=== PATIENT | male | born 1945 | race Caucasian/White ===

== ENCOUNTER 2016-11-24 09:47 | Inpatient (IN) | payer OTHER ==
[~2016-11-24] VITALS: Ht 177.8 cm; Wt 86.4 kg
[2016-11-24] MEDS ORDERED: LACTATED RINGERS 1,000 ML IV SCH (10:22)
[2016-11-24] MEDS ORDERED: CEFAZOLIN 1,000 MG ONE (10:30)
[2016-11-24] MEDS ORDERED: DEXAMETHASONE 4 MG/ML, 1ML ONE (10:30)
[2016-11-24] MEDS ORDERED: PROPOFOL 10 MG/ML, 20ML ONE (10:30)
[2016-11-24] MEDS ORDERED: SUCCINYLCHOLINE 20 MG/ML, 10ML ONE (10:30)
[2016-11-24] MEDS ORDERED: ONDANSETRON 2MG/ML, 2ML ONE (10:30)
[2016-11-24] MEDS ORDERED: METOCLOPRAMIDE 5 MG/ML, 2ML ONE (10:30)
[2016-11-24] MEDS ORDERED: PHENYLEPHRINE 10 MG/ML ONE (10:30)
[2016-11-24] MEDS ORDERED: ATOR10TA9 PO (10:32)
[2016-11-24] MEDS ORDERED: FLUT16SP INH (10:32)
[2016-11-24] MEDS ORDERED: BIOT5TAB PO (10:32)
[2016-11-24] MEDS ORDERED: FLUT1AER INH (10:32)
[2016-11-24] MEDS ORDERED: ASCO100072 PO (10:32)
[2016-11-24] MEDS ORDERED: ASPI-650 PO (10:32)
[2016-11-24 10:38] VITALS: BP 160/89
[2016-11-24 11:29] LABS: BLOOD UREA NITROGEN 13 mg/dL (7-18)
[2016-11-24 11:32] LABS: ASPARTATE AMINO TRANSFERASE 21 U/L (15-37)
[2016-11-24] MEDS ORDERED: OXYMETAZOLINE NASAL SPRAY 0.05%, 15ML ONE (13:11)
[2016-11-24] MEDS ORDERED: LIDOCAINE/PF 1%-EPI 1:200K, 30ML ONE (13:11)
[2016-11-24] MEDS ORDERED: BACITRACIN OINT 500U/GM, 15 GM ONE (13:12)
[2016-11-24] MEDS ORDERED: HYDROmorphone 1 MG/ML, 1ML ONE (13:19)
[2016-11-24] MEDS ORDERED: FENTANYL PF 250 MCG/5ML ONE (13:20)
[2016-11-24] MEDS ORDERED: hydrALAzine 20 MG/ML, 1ML IV PRN (14:30)
[2016-11-24] MEDS ORDERED: FENTANYL PF 100 MCG/2ML IV PRN (14:30)
[2016-11-24] MEDS ORDERED: ONDANSETRON 2MG/ML, 2ML IVPush PRN (14:30)
[2016-11-24] MEDS ORDERED: LABETALOL 5MG/ML, 20ML IV PRN (14:30)
[2016-11-24] MEDS ORDERED: HYDROmorphone 1 MG/ML, 1ML IV PRN (14:30)
[2016-11-24] MEDS ORDERED: OXYcodone 5 MG/5 ML ORAL.SOL UDC PO PRN (14:30)
[2016-11-24] MEDS ORDERED: DIPHENHYDRAMINE 50 MG/ML, 1ML IV PRN (22:00)
[2016-11-24] MEDS: LABETALOL 5MG/ML, 20ML IVPush SCH (22:00)
[2016-11-24] MEDS ORDERED: LORazepam 1MG TABLET PO PRN (22:00)
[2016-11-24] MEDS ORDERED: LORazepam 2 MG/ML, 1ML IV PRN (22:00)
[2016-11-24] MEDS ORDERED: ACETAMINOPHEN 650 MG SUPP PR PRN (22:00)
[2016-11-24] MEDS ORDERED: ACETAMINOPHEN 325 MG TABLET PO PRN (22:00)
[2016-11-24] MEDS ORDERED: morphine SULFATE 10 MG/ML, 1ML IV PRN (22:00)
[2016-11-24] MEDS ORDERED: ONDANSETRON 2MG/ML, 2ML IV PRN (22:00)
[2016-11-24] MEDS ORDERED: DIPHENHYDRAMINE 25 MG CAPSULE PO PRN (22:00)
[2016-11-24] MEDS ORDERED: ENALAPRILAT 1.25 MG/ML, 2ML IV PRN (22:00)
[2016-11-24] MEDS: POTASSIUM CHLORIDE 20 MEQ in D5%-0.45% NACL 1,000 ML IV SCH (22:59)
[2016-11-25 00:06] VITALS: BP 150/88
[2016-11-25 03:32] VITALS: BP 134/79
[2016-11-25] MEDS: LABETALOL 5MG/ML, 20ML IVPush SCH ×3 (05:45→22:00)
[2016-11-25 05:58] LABS: BLOOD UREA NITROGEN 10 mg/dL (7-18)
[2016-11-25 07:29] VITALS: BP 144/76
[2016-11-25] MEDS: POTASSIUM CHLORIDE 20 MEQ in D5%-0.45% NACL 1,000 ML IV SCH ×3 (09:00→23:07)
[2016-11-25] MEDS: SODIUM CHLORIDE FLUSH 10ML SYR IVF SCH ×2 (09:36→23:07)
[2016-11-25] MEDS: BACITRACIN OINT 500U/GM, 15 GM TP PRN (09:55)
[2016-11-25] MEDS: CALCIUM/VITAMIN D3 250-125 TABLET PO SCH ×3 (09:55→23:07)
[2016-11-25] MEDS ORDERED: CALCIUM/VITAMIN D3 250-125 TABLET PO SCH (11:00)
[2016-11-25 14:01] VITALS: BP 126/71
[2016-11-25 21:40] VITALS: BP 126/70
[2016-11-26 02:20] VITALS: BP 143/88
[2016-11-26] MEDS: LABETALOL 5MG/ML, 20ML IVPush SCH ×3 (06:00→22:00)
[2016-11-26] MEDS: CALCIUM/VITAMIN D3 250-125 TABLET PO SCH ×4 (06:03→21:27)
[2016-11-26 07:13] VITALS: BP 139/77
[2016-11-26] MEDS: SODIUM CHLORIDE FLUSH 10ML SYR IVF SCH ×2 (09:04→21:28)
[2016-11-26] MEDS: BACITRACIN OINT 500U/GM, 15 GM TP PRN ×2 (09:05→21:28)
[2016-11-26] MEDS: POTASSIUM CHLORIDE 20 MEQ in D5%-0.45% NACL 1,000 ML IV SCH ×2 (10:15→17:09)
[2016-11-26 13:35] VITALS: BP 123/74
[2016-11-26 18:55] VITALS: BP 138/81
[2016-11-26 23:08] VITALS: BP 134/79
[2016-11-27] MEDS: POTASSIUM CHLORIDE 20 MEQ in D5%-0.45% NACL 1,000 ML IV SCH ×2 (03:05→11:38)
[2016-11-27] MEDS ORDERED: HYDR-883 PO (03:22)
[2016-11-27 04:30] VITALS: BP 122/77
[2016-11-27] MEDS: LABETALOL 5MG/ML, 20ML IVPush SCH ×2 (04:36→14:48)
[2016-11-27] MEDS: CALCIUM/VITAMIN D3 250-125 TABLET PO SCH ×2 (07:05→11:41)
[2016-11-27 07:27] VITALS: BP 127/79
[2016-11-27] MEDS ORDERED: FLUTICASONE/VILANTEROL 100-25MCG/INH INH SCH (09:00)
[2016-11-27] MEDS: SODIUM CHLORIDE FLUSH 10ML SYR IVF SCH (09:36)
[2016-11-27] MEDS ORDERED: CALC-173 PO (12:38)
[2016-11-27 15:20] VITALS: BP 146/81
[2016-11-27] MEDS ORDERED: ATORVASTATIN 10 MG TABLET PO SCH (21:00)
== END 2016-11-27 15:32 | disposition home or self-care (01) | DRG 627 ==
LOC: OUT 09:47 → 4NOR 21:01 → OUT 21:23 → 4NOR 21:23
PROVIDERS: ADMIT Otolaryngology; ATTEND Otolaryngology
PROC: 0BJ08ZZ Inspection of Tracheobronchial Tree, Via Natural or Artificial Opening Endoscopic (ICD-10-PCS; 2016-11-24)
PROC: 0CJS8ZZ Inspection of Larynx, Via Natural or Artificial Opening Endoscopic (ICD-10-PCS; 2016-11-24)
PROC: 4A11X4G Monitoring of Peripheral Nervous Electrical Activity, Intraoperative, External Approach (ICD-10-PCS; 2016-11-24)
PROC: 07T10ZZ Resection of Right Neck Lymphatic, Open Approach (ICD-10-PCS; 2016-11-24)
PROC: 07B20ZZ Excision of Left Neck Lymphatic, Open Approach (ICD-10-PCS; 2016-11-24)
PROC: 07B10ZZ Excision of Right Neck Lymphatic, Open Approach (ICD-10-PCS; 2016-11-24)
PROC: 0GTK0ZZ Resection of Thyroid Gland, Open Approach (ICD-10-PCS; principal; 2016-11-24 12:45)
PROC: 07T20ZZ Resection of Left Neck Lymphatic, Open Approach (ICD-10-PCS; 2016-11-24 12:45)
DX: C73 Malignant neoplasm of thyroid gland (principal); J38.01 Paralysis of vocal cords and larynx, unilateral; R59.0 Localized enlarged lymph nodes
CPT/HCPCS: 36415; 71010; 80048; 80053; 82040; 82310; 85025; 88305; 88307; 88331; 93005; C1729; J0690; J1100; J1170; J2405; J2704; J3010; J3480; J3490; C1760; J0330; J2370; J2765

== ENCOUNTER 2021-02-25 09:51 | Outpatient (CLI) | payer OTHER ==
[~2021-02-25 09:51] MED LIST: ASCO100072 PO; ASPI-1026 PO; ATOR10TA9 PO; BIOT5TAB PO; CALC-173 PO; FLUT16SP24 INH; FLUT1AER INH; HYDR-1067 PO
== END 2021-02-25 23:59 | disposition home or self-care (01) ==
LOC: CFH 09:51
PROVIDERS: ATTEND Obstetrics & Gynecology
DX: Z12.2 Encounter for screening for malignant neoplasm of respiratory organs (principal); C73 Malignant neoplasm of thyroid gland; S25.0 Injury of thoracic aorta; I71.4 Abdominal aortic aneurysm, without rupture; Z87.891 Personal history of nicotine dependence; R91.8 Other nonspecific abnormal finding of lung field; J43.9 Emphysema, unspecified; M43.8X6 Other specified deforming dorsopathies, lumbar region; I25.10 Atherosclerotic heart disease of native coronary artery without angina pectoris; J98.4 Other disorders of lung; X58.XXXD Exposure to other specified factors, subsequent encounter
CPT/HCPCS: 71271; 76706

== ENCOUNTER 2021-03-31 07:43 | Day surgery (SDC) | payer OTHER ==
[~2021-03-31] VITALS: Ht 177.8 cm; Wt 74.3 kg
[2021-03-31 08:30] VITALS: BP 161/76
[2021-03-31] MEDS ORDERED: SODIUM CHLORIDE 0.9% 1,000 ML IV SCH (09:00)
[2021-03-31] MEDS ORDERED: FENTANYL PF 100 MCG/2ML ONE (09:43)
[2021-03-31] MEDS ORDERED: NALOXONE 1 MG/ML, 2ML ONE (09:43)
[2021-03-31] MEDS ORDERED: FLUMAZENIL 0.1 MG/1 ML, 5ML ONE (09:43)
[2021-03-31] MEDS ORDERED: MIDAZOLAM 1 MG/ML, 5ML ONE (09:43)
== END 2021-03-31 15:30 | disposition home or self-care (01) ==
LOC: OUT 07:43
PROVIDERS: ATTEND Pathology Hematology
DX: J98.4 Other disorders of lung (principal); C78.01 Secondary malignant neoplasm of right lung; C73 Malignant neoplasm of thyroid gland; J44.9 Chronic obstructive pulmonary disease, unspecified; E78.5 Hyperlipidemia, unspecified; E89.0 Postprocedural hypothyroidism; I10 Essential (primary) hypertension; Z79.890 Hormone replacement therapy; Z79.899 Other long term (current) drug therapy; Z87.891 Personal history of nicotine dependence
CPT/HCPCS: 32408; 71045; 88305; 88333; 99156; 99157; J2250; J3010; 77012; J2310